=== PATIENT | female | born 1995 | race Caucasian/White ===

== ENCOUNTER 2017-06-06 21:35 | Outpatient (CLI) | payer OTHER ==
[2017-06-06 22:05] LABS: APPEARANCE,URINE CLOUDY; BILIRUBIN,URINE NEGATIVE (NEGATIVE); GLUCOSE, URINE NEGATIVE (NEGATIVE); KETONES,URINE NEGATIVE (NEGATIVE); LEUKOCYTE ESTERASE,URINE TRACE (NEGATIVE); NITRITE,URINE NEGATIVE (NEGATIVE); PROTEIN,URINE NEGATIVE (NEGATIVE); URINE SPECIFIC GRAVITY 1.006; UROBILINOGEN,URINE NEGATIVE mg/dL (<2.0)
[2017-06-06 22:10] LABS: AMNISURE (ROM) NEGATIVE (NEGATIVE)
[2017-06-06 22:21] LABS: URINE BARBITURATES SCREEN NEGATIVE; URINE METHADONE SCREEN NEGATIVE; URINE OPIATES LOW NEGATIVE; URINE PHENCYCLIDINE SCREEN NEGATIVE
--- NOTE | 2017-06-06 22:31 | Non Stress Test Report ---
Non Stress Test Datetime Report Generated by CPN: 06/06/2017 22:31 DEMOGRAPHIC EGA NST: 34.5 INDICATION Indication for Study: Ordered by Provider MONITORING Monitor Explained: Monitor Explained; Test Explained; Patient Verbalized Understanding Time on Monitor: 06/06/2017 21:54 Time off Monitor: 06/06/2017 22:25 NST Duration: 31 NST INTERVENTIONS NST Interventions: PO Hydration; Reposition Patient Physician Notified NST: H. Umer CNM BABY A: [id number] BABY A Movement : Present Contraction Frequency : none FHR Baseline : 150 Accelerations : 15X15 Decelerations : None Variability : Moderate 6-25bpm NST Review: Meets Criteria for Reactive NST NST Review and Verified By : Easton Martins RN NST Results: Reactive NST REPORT Report Trigger: Send Report
== END 2017-06-06 22:42 | disposition home or self-care (01) ==
LOC: LC 21:35
PROVIDERS: ATTEND Obstetrics & Gynecology
PROC: 4A1HXCZ Monitoring of Products of Conception, Cardiac Rate, External Approach (ICD-10-PCS; principal; 2017-06-06)
DX: O47.03 False labor before 37 completed weeks of gestation, third trimester (principal); Z3A.34 34 weeks gestation of pregnancy
CPT/HCPCS: 59025; 80307; 81001; 84112

== ENCOUNTER 2017-06-16 23:21 | Outpatient (CLI) | payer OTHER ==
[2017-06-16 23:58] LABS: APPEARANCE,URINE CLOUDY; BILIRUBIN,URINE NEGATIVE (NEGATIVE); GLUCOSE, URINE NEGATIVE (NEGATIVE); KETONES,URINE 80 mg/dL (NEGATIVE); LEUKOCYTE ESTERASE,URINE TRACE (NEGATIVE); NITRITE,URINE NEGATIVE (NEGATIVE); PROTEIN,URINE NEGATIVE (NEGATIVE); URINE SPECIFIC GRAVITY 1.019; UROBILINOGEN,URINE NEGATIVE mg/dL (<2.0)
[2017-06-17] MEDS ORDERED: BUTALB/ACETAMINOPHEN/CAFFEINE 1 TAB EACH PO ONE (00:05)
[2017-06-17] MEDS ORDERED: ONDANSETRON 4 MG TAB.RAPDIS PO ONE (00:05)
[2017-06-17] MEDS ORDERED: ONDANSETRON 4 MG TAB.RAPDIS ONE (00:07)
[2017-06-17] MEDS ORDERED: BUTALB/ACETAMINOPHEN/CAFFEINE 1 TAB EACH ONE (00:07)
[2017-06-17 00:10] LABS: URINE BARBITURATES SCREEN NEGATIVE; URINE METHADONE SCREEN NEGATIVE; URINE OPIATES LOW NEGATIVE; URINE PHENCYCLIDINE SCREEN NEGATIVE
== END 2017-06-17 01:31 | disposition home or self-care (01) ==
LOC: LC 23:21
PROVIDERS: ATTEND Obstetrics & Gynecology
PROC: 4A1HXCZ Monitoring of Products of Conception, Cardiac Rate, External Approach (ICD-10-PCS; principal; 2017-06-16)
DX: O47.03 False labor before 37 completed weeks of gestation, third trimester (principal); Z3A.36 36 weeks gestation of pregnancy
CPT/HCPCS: 59025; 81001; 80307; J3490; S0119

== ENCOUNTER 2017-06-21 13:58 | Outpatient (CLI) | payer OTHER ==
--- NOTE | 2017-06-21 14:01 | Non Stress Test Report ---
Non Stress Test Datetime Report Generated by CPN: 06/21/2017 14:01 DEMOGRAPHIC Test Number: 2 EGA NST: 36.1 INDICATION Indication for Study: Ordered by Provider VITAL SIGNS Temperature - NST: 98.8 URINE RESULTS Urine Protein, NST: Negative Urine Ketones - NST: Positive Urine Glucose - NST: Negative Urine Blood - NST: Negative MONITORING Monitor Explained: Monitor Explained; Test Explained; Patient Verbalized Understanding; Other Time on Monitor: 06/16/2017 23:42 Time off Monitor: 06/17/2017 01:23 NST Duration: 101 NST INTERVENTIONS NST Interventions: PO Hydration Physician Notified NST: Dr. Tellez BABY A: [id number] BABY A Movement : Present Contraction Frequency : irregular FHR Baseline : 130 Accelerations : 15X15 Decelerations : None Variability : Moderate 6-25bpm NST Review: Meets Criteria for Reactive NST NST Review and Verified By : sivakumar robert NST Results: Reactive NST REPORT Report Trigger: Send Report
[2017-06-21] MEDS ORDERED: MAG HYDROX/AL HYDROX/SIMETH SUSP 30 ML UDCUP ONE (14:12)
[2017-06-21] MEDS ORDERED: MAG HYDROX/AL HYDROX/SIMETH SUSP 30 ML UDCUP PO ONE (14:15)
[2017-06-21 14:53] LABS: APPEARANCE,URINE SLIGHTLY-CLOUDY; BILIRUBIN,URINE NEGATIVE (NEGATIVE); GLUCOSE, URINE NEGATIVE (NEGATIVE); KETONES,URINE NEGATIVE (NEGATIVE); LEUKOCYTE ESTERASE,URINE TRACE (NEGATIVE); NITRITE,URINE NEGATIVE (NEGATIVE); PROTEIN,URINE NEGATIVE (NEGATIVE); URINE SPECIFIC GRAVITY 1.006; UROBILINOGEN,URINE NEGATIVE mg/dL (<2.0)
[2017-06-21 14:59] LABS: AMNISURE (ROM) NEGATIVE (NEGATIVE)
[2017-06-21 15:22] LABS: URINE METHADONE SCREEN NEGATIVE; URINE OPIATES LOW NEGATIVE; URINE PHENCYCLIDINE SCREEN NEGATIVE
[2017-06-21 15:28] LABS: URINE BARBITURATES SCREEN UNCONFIRMED POSITIVE
--- NOTE | 2017-06-21 16:02 | Non Stress Test Report ---
Non Stress Test Datetime Report Generated by CPN: 06/21/2017 16:02 DEMOGRAPHIC EGA NST: 36.6 INDICATION Indication for Study: Polyhydramnios; Other Indication for Study (NST) Other: Cramping VITAL SIGNS Temperature - NST: 99.1 MONITORING Monitor Explained: Monitor Explained; Test Explained; Patient Verbalized Understanding Time on Monitor: 06/21/2017 14:46 Time off Monitor: 06/21/2017 15:51 NST Duration: 65 NST INTERVENTIONS NST Interventions: PO Hydration Physician Notified NST: J. Mckeon, CNM BABY A Movement : Present Contraction Frequency : Irritability FHR Baseline : 150 Accelerations : 15X15 Decelerations : None Variability : Moderate 6-25bpm NST Review: Meets Criteria for Reactive NST NST Review and Verified By : Kaycee Alvarado RN NST Results: Reactive NST REPORT Report Trigger: Send Report
== END 2017-06-21 16:00 | disposition home or self-care (01) ==
LOC: LC 13:58
PROVIDERS: ATTEND Obstetrics & Gynecology
PROC: 4A1HXCZ Monitoring of Products of Conception, Cardiac Rate, External Approach (ICD-10-PCS; principal; 2017-06-21)
DX: O40.3XX0 Polyhydramnios, third trimester, not applicable or unspecified (principal); Z3A.36 36 weeks gestation of pregnancy
CPT/HCPCS: 59025; 84112; 81005; 80307; 80345; G0480

== ENCOUNTER 2017-06-28 16:21 | Outpatient (CLI) | payer OTHER | END 2017-06-28 16:56 | disposition home or self-care (01) | LOC: LC 16:21 | PROVIDERS: ATTEND Obstetrics & Gynecology | PROC: 4A1HXCZ Monitoring of Products of Conception, Cardiac Rate, External Approach (ICD-10-PCS; principal; 2017-06-28) | DX: O40.3XX0 Polyhydramnios, third trimester, not applicable or unspecified (principal); Z3A.37 37 weeks gestation of pregnancy | CPT/HCPCS: 59025 ==

== ENCOUNTER 2017-08-01 07:18 | Emergency (ER) | payer OTHER ==
[2017-08-01] MEDS ORDERED: ONDANSETRON HCL INJ/PF 4 MG/2 ML SDV IV ONE (07:43)
[2017-08-01] MEDS ORDERED: NORMAL SALINE 1000 ML 1,000 ML IV ONE (07:43)
[2017-08-01] MEDS ORDERED: MORPHINE SULFATE 10 MG/ML INJ IV ONE ×2 (07:44→10:08)
--- NOTE | 2017-08-01 08:01 | ER Document Report ---
ED GI/ - General Chief Complaint: Epigastric Pain Stated Complaint: difficulty breathing Time Seen by Provider: 08/01/17 07:32 Mode of Arrival: Ambulatory Information source: Patient, Relative Notes: Patient is a 21-year-old white female comes to emergency room with the onset of nausea vomiting and diarrhea with abdominal discomfort and pain. Patient states that she drank a little bit last night she had 3 of [employer] hard lemonade little cans and ate a pizza. Patient states that she has difficulty with gluten and this morning when she woke up she started with vomiting and diarrhea. Shortly after she had some vomiting patient started with midepigastric pain and became short of breath. She has vomited multiple times and had multiple bouts of diarrhea. Patient is status post 21 days she delivered on July 11, 2017. She currently states that she is not breast- feeding. She denies any other surgical interventions in the abdomen and she did give vaginal . This is her first she is para 1 1 now. TRAVEL OUTSIDE OF THE [place] 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, Similar, Heavier, Severe, Bright red, Dark brown, Passing clots, Passing tissue LMP: 9 months ago : 1 Para: 1 Sexual history: Active Associated symptoms: Diarrhea, Shortness of breath, Vomiting Exacerbated by: Denies Relieved by: Denies Similar symptoms previously: No Recently seen / treated by doctor: No - Related Data Allergies/Adverse Reactions: hydrocodone Allergy (Mild, Verified 08/01/17 07:44) Hives latex Allergy (Verified 08/01/17 07:44) shellfish derived Allergy (Verified 08/01/17 07:44) hydroxyzine [From Vistaril] Adverse Reaction (Intermediate, Verified 08/01/17 07 :44) Penicillins Adverse Reaction (Mild, Verified 08/01/17 07:44) Past Medical History - General Information source: Patient, Relative Last Menstrual Period: 9 months ago - Social History Smoking Status: Current Every Day Smoker Chew tobacco use (# tins/day): No - Patient does not smoke cigarettes she vapes Smoking Education Provided: Yes Frequency of alcohol use: None Drug Abuse: None Lives with: Family Family History: Reviewed & Not Pertinent Patient has suicidal ideation: No Patient has homicidal ideation: No Renal/ Medical History: Denies: Hx Peritoneal Dialysis Review of Systems - Review of Systems Constitutional: Weakness EENT: No symptoms reported Cardiovascular: No symptoms reported Respiratory: No symptoms reported, Short of breath Gastrointestinal: Abdominal pain, Diarrhea, Nausea, Vomiting Genitourinary: No symptoms reported Female Genitourinary: No symptoms reported Musculoskeletal: No symptoms reported Skin: No symptoms reported Hematologic/Lymphatic: No symptoms reported Neurological/Psychological: No symptoms reported Physical Exam - Vital signs Vitals: Temp Pulse Resp BP Pulse Ox 98.3 F 91 20 138/83 H 100 08/01/17 07:21 08/01/17 07:21 08/01/17 07:21 08/01/17 07:21 08/01/17 07:21 Interpretation: Hypertensive - General General appearance: Other - Obvious pain and discomfort In distress: Moderate - HEENT Head: Normocephalic, Atraumatic Mouth/Lips: Normal Mucous membranes: Normal, Moist Pharynx: Normal Neck: Normal - Respiratory Respiratory status: No respiratory distress Chest status: Nontender. No: Tender, Chest mass, Ecchymosis, No pleuritic chest pain, Pain on movement, Pain with cough, Pain with deep breathing, Wounds , Accessory muscle use, Prolonged expirations, Splinting, Other Breath sounds: Normal. No: Decreased air movement, Nonproductive cough, Productive cough, Rales, Rhonchi, Stridor, Wheezing, Other Chest palpation: Normal - Cardiovascular Rhythm: Regular Heart sounds: Normal auscultation Murmur: No - Abdominal Inspection: Obese Distension: No distension Bowel sounds: Normal Tenderness: Tender, McBurney's point, Alvarado's sign, Guarding, Rebound, Other - Referred, heel strike, Organomegaly: No organomegaly - Back Back: Normal, Nontender - Neurological Neuro grossly intact: Yes Cognition: Normal Orientation: AAOx4 [place] Coma Scale Eye Opening: Spontaneous [place] Coma Scale Verbal: Oriented [place] Coma Scale Motor: Obeys Commands T[place]on Coma Scale Total: 15 Speech: Normal - Skin Skin Temperature: Warm Skin Moisture: Diaphoretic Skin Color: Normal, [place], Pale Course - Vital Signs Vital signs: Temp Pulse Resp BP Pulse Ox 98.3 F 91 20 138/83 H 100 08/01/17 07:21 08/01/17 07:21 08/01/17 07:21 08/01/17 07:21 08/01/17 07:21 - Laboratory Result Diagrams: 08/01/17 08:02 08/01/17 08:02 Laboratory results interpreted by me: 08/01/17 08/01/17 08/01/17 07:38 08:02 08:02 RDW 16.2 H Sodium 149.1 H AST 48 H ALT 65 H Lipase 754.7 H Urine Protein 30 H Urine Blood MODERATE H Ur Leukocyte Esterase LARGE H - Diagnostic Test Radiology reviewed: Reports reviewed - Ultrasound of the gallbladder showed gallstones otherwise normal right upper quadrant ultrasound Discharge - Discharge Disposition: [facility] Admitting Provider: Ameya
[2017-08-01 08:02] LABS: APPEARANCE,URINE CLOUDY; BILIRUBIN,URINE NEGATIVE (NEGATIVE); GLUCOSE, URINE NEGATIVE (NEGATIVE); KETONES,URINE NEGATIVE (NEGATIVE); LEUKOCYTE ESTERASE,URINE LARGE (NEGATIVE); NITRITE,URINE NEGATIVE (NEGATIVE); PROTEIN,URINE 30 mg/dL (NEGATIVE); URINE SPECIFIC GRAVITY 1.025; UROBILINOGEN,URINE NEGATIVE mg/dL (<2.0)
[2017-08-01 08:15] LABS: ABSOLUTE BASOPHILS # (AUTO) 0.1 10^3/uL (0.0-0.2); ABSOLUTE EOSINOPHILS # (AUTO) 0.1 10^3/uL (0.0-0.6); ABSOLUTE MONOCYTES (AUTO) 0.2 10^3/uL (0.1-1.4); ABSOLUTE NEUT (AUTO) 3.6 10^3/uL (1.7-8.2); EOSINOPHILS % (AUTO) 1.9 % (0-6); HEMOGLOBIN 13.8 g/dL (12.0-15.5); HGB HCT DIFFERENCE 0.4; LYMPHOCYTES % (AUTO) 33.3 % (13-45); MEAN CORPUSCULAR HEMOGLOBIN 28.1 pg (27.0-33.4); MEAN CORPUSCULAR HGB CONC 33.7 g/dL (32.0-36.0); MEAN CORPUSCULAR VOLUME 83 fl (80-97); MONOCYTES % (AUTO) 4.1 % (3-13); RED BLOOD COUNT 4.91 10^6/uL (3.72-5.28); RED CELL DISTRIBUTION WIDTH 16.2 % (11.5-14.0); SEGMENTED NEUTROPHILS % (AUTO) 59.7 % (42-78)
[2017-08-01 08:28] LABS: ALANINE AMINOTRANSFERASE 65 U/L (9-52); ALBUMIN 4.9 g/dL (3.5-5.0); ALKALINE PHOSPHATASE 96 U/L (38-126); ANION GAP 17 (5-19); ASPARTATE AMINO TRANSFERASE 48 U/L (14-36); BILIRUBIN,DIRECT 0.4 mg/dL (0.0-0.4); BILIRUBIN,TOTAL 0.7 mg/dL (0.2-1.3); BLOOD UREA NITROGEN 18 mg/dL (7-20); CALCIUM 9.9 mg/dL (8.4-10.2); CARBON DIOXIDE 26 mmol/L (22-30); CHLORIDE 106 mmol/L (98-107); CREATININE RESULT 1.13 mg/dL (0.52-1.25); GLUCOSE 102 mg/dL (75-110); LIPASE 754.7 U/L (23-300); POTASSIUM 4.1 mmol/L (3.6-5.0); SODIUM 149.1 mmol/L (137-145); TOTAL PROTEIN 7.8 g/dL (6.3-8.2)
[2017-08-01] MEDS ORDERED: PROMETHAZINE HCL INJ 25 MG/1 ML VIAL IV ONE (08:43)
--- NOTE | 2017-08-01 09:38 | RADIOLOGY REPORT (SQ) ---
EXAM DESCRIPTION: U/S ABDOMEN LIMITED W/O DOP COMPLETED DATE/TIME: 08/01/2017 9:31 am REASON FOR STUDY: ? Gallblladder COMPARISON: None. TECHNIQUE: Dynamic and static grayscale images acquired of the abdomen and recorded on PACS. Additio nal selected color Doppler and spectral images recorded. LIMITATIONS: None. FINDINGS: PANCREAS: No masses. Visualized pancreatic duct normal caliber. LIVER: No masses. Echotexture normal. LIVER VASCULATURE: Normal directional flow of the main portal vein and hepatic veins. GALLBLADDER: Echodensity along the dependent wall of gallbladder consistent with gallstones. No thic kening of gallbladder wall. No pericholecystic fluid collection. ULTRASOUND-DETECTED DIAZ'S SIGN: Negative. INTRAHEPATIC DUCTS AND COMMON DUCT: CBD and intrahepatic ducts normal caliber. No filling defects. INFERIOR VENA CAVA: Normal flow. AORTA: No aneurysm. RIGHT KIDNEY: Normal size. Normal echogenicity. No solid or suspicious masses. No hydronephrosis. No calcifications. PERITONEAL AND RIGHT PLEURAL SPACE: No ascites or effusions. OTHER: No other significant finding. IMPRESSION: GALLSTONES. OTHERWISE NORMAL RIGHT UPPER QUADRANT ULTRASOUND. TECHNICAL DOCUMENTATION: JOB ID: [id number] [employer]- All Rights Reserved
[2017-08-01] MEDS ORDERED: CEFTRIAXONE 1 GM/D5W RTU 1 GM/50 ML RTUPB IV ONE (11:38)
[2017-08-01] MEDS ORDERED: DIPHENHYDRAMINE HCL 50 MG/ML VIAL IV ONE (12:06)
[2017-08-01] MEDS ORDERED: DIPHENHYDRAMINE HCL 50 MG/ML VIAL ONE (12:06)
[2017-08-01 12:18] VITALS: BP 98/77
== END 2017-08-01 12:18 | disposition short-term general hospital (02) ==
LOC: ER 07:18
DX: K85.90 Acute pancreatitis without necrosis or infection, unspecified (principal); K80.80 Other cholelithiasis without obstruction; R10.13 Epigastric pain; R11.2 Nausea with vomiting, unspecified; R19.7 Diarrhea, unspecified
CPT/HCPCS: 96376; 99285; 96361; 96374; 96375; 36415; 87040; 83690; 85025; 81025; 80053; 81001; 76705; J1200; J2270; J2550; J2405; J7030; J0696

== ENCOUNTER 2017-11-09 09:35 | Emergency (ER) | payer OTHER ==
--- NOTE | 2017-11-09 09:56 | ER Document Report ---
ED Medical Screen (RME) - General Chief Complaint: Abdominal Cramping Stated Complaint: ABDOMINAL CRAMPING Time Seen by Provider: 11/09/17 09:52 Notes: Patient has had lower abdominal cramping for the past couple of weeks. 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 Think she is likely because she has had 6 positive home test. Her last menstrual cycle was October 05. Has not had any vaginal bleeding or spotting. Has had nausea and vomiting. No fevers. Patient has a history of depression with her last born child, born 4 months ago. TRAVEL OUTSIDE OF THE [place] IN LAST 30 DAYS: No - Related Data Allergies/Adverse Reactions: hydrocodone Allergy (Mild, Verified 11/09/17 09:37) Hives latex Allergy (Verified 11/09/17 09:37) shellfish derived Allergy (Verified 11/09/17 09:37) hydroxyzine [From Vistaril] Adverse Reaction (Intermediate, Verified 11/09/17 09 :37) Penicillins Adverse Reaction (Mild, Verified 11/09/17 09:37) Past Medical History - Social History Chew tobacco use (# tins/day): No Frequency of alcohol use: None Drug Abuse: None Renal/ Medical History: Denies: Hx Peritoneal Dialysis - Immunizations History of Influenza Vaccine for 06/2017 - 11/2017 Season: Refused Physical Exam - Vital signs Vitals: Temp Pulse Resp BP Pulse Ox 98.0 F 91 20 128/64 H 100 11/09/17 09:41 11/09/17 09:41 11/09/17 09:41 11/09/17 09:41 11/09/17 09:41 Course - Vital Signs Vital signs: Temp Pulse Resp BP Pulse Ox 98.0 F 91 20 128/64 H 100 11/09/17 09:41 11/09/17 09:41 11/09/17 09:41 11/09/17 09:41 11/09/17 09:41
[2017-11-09 10:28] LABS: ABSOLUTE BASOPHILS # (AUTO) 0.1 10^3/uL (0.0-0.2); ABSOLUTE EOSINOPHILS # (AUTO) 0.1 10^3/uL (0.0-0.6); ABSOLUTE LYMPHOCYTES (AUTO) 2.1 10^3/uL (0.5-4.7); ABSOLUTE MONOCYTES (AUTO) 0.5 10^3/uL (0.1-1.4); ABSOLUTE NEUT (AUTO) 6.1 10^3/uL (1.7-8.2); BASOPHILS % (AUTO) 0.7 % (0-2); EOSINOPHILS % (AUTO) 1.2 % (0-6); HEMATOCRIT 40.5 % (36.0-47.0); HEMOGLOBIN 13.4 g/dL (12.0-15.5); LYMPHOCYTES % (AUTO) 23.3 % (13-45); MEAN CORPUSCULAR HEMOGLOBIN 27.1 pg (27.0-33.4); MEAN CORPUSCULAR HGB CONC 33.1 g/dL (32.0-36.0); MEAN CORPUSCULAR VOLUME 82 fl (80-97); MONOCYTES % (AUTO) 5.7 % (3-13); PLATELET COUNT 349 10^3/uL (150-450); RED BLOOD COUNT 4.94 10^6/uL (3.72-5.28); RED CELL DISTRIBUTION WIDTH 15.9 % (11.5-14.0); SEGMENTED NEUTROPHILS % (AUTO) 69.1 % (42-78); TOTAL CELLS COUNTED % (AUTO) 100 %; WHITE BLOOD COUNT 8.8 10^3/uL (4.0-10.5)
[2017-11-09 10:47] LABS: ALANINE AMINOTRANSFERASE 60 U/L (9-52); ALBUMIN 4.6 g/dL (3.5-5.0); ALKALINE PHOSPHATASE 66 U/L (38-126); ANION GAP 13 (5-19); ASPARTATE AMINO TRANSFERASE 30 U/L (14-36); BILIRUBIN,DIRECT 0.1 mg/dL (0.0-0.4); BILIRUBIN,TOTAL 0.4 mg/dL (0.2-1.3); BLOOD UREA NITROGEN 17 mg/dL (7-20); CALCIUM 9.7 mg/dL (8.4-10.2); CARBON DIOXIDE 23 mmol/L (22-30); CHLORIDE 103 mmol/L (98-107); GLUCOSE 91 mg/dL (75-110); POTASSIUM 4.4 mmol/L (3.6-5.0); SODIUM 138.9 mmol/L (137-145); TOTAL PROTEIN 6.9 g/dL (6.3-8.2)
[2017-11-09 10:52] LABS: APPEARANCE,URINE SLIGHTLY-CLOUDY; BILIRUBIN,URINE NEGATIVE (NEGATIVE); COLOR,URINE YELLOW; GLUCOSE, URINE NEGATIVE (NEGATIVE); KETONES,URINE NEGATIVE (NEGATIVE); LEUKOCYTE ESTERASE,URINE NEGATIVE (NEGATIVE); NITRITE,URINE NEGATIVE (NEGATIVE); PROTEIN,URINE NEGATIVE (NEGATIVE); URINE SPECIFIC GRAVITY 1.018; UROBILINOGEN,URINE NEGATIVE mg/dL (<2.0)
--- NOTE | 2017-11-09 10:58 | ER Document Report ---
ED GI/ - General Chief Complaint: Abdominal Cramping Stated Complaint: ABDOMINAL CRAMPING Time Seen by Provider: 11/09/17 09:52 Notes: 22-year-old 071 at around 5 weeks by last menstrual period who presents today with a home test yesterday. Patient states she has had some lower abdominal cramping without dysuria or diarrhea starting today. Patient states 3 days ago she did feel dizzy had a syncopal episode while standing in line. She has not passed out since that time. She denies any vaginal bleeding. She currently denies any lightheadedness and states that the nausea has improved. TRAVEL OUTSIDE OF THE [place] IN LAST 30 DAYS: No - HPI Patient complains to provider of: Other - See above Onset: Other - See above Timing/Duration: Gradual Quality of pain: Other - See above Severity at maximum: Mild Severity in ED: Mild Pain Level: Denies Location: Other - See above Vaginal bleeding (Compared to normal period): None vitamins taken: Yes Sexual history: Active Associated symptoms: Other Exacerbated by: Denies Relieved by: Denies - Related Data Allergies/Adverse Reactions: hydrocodone Allergy (Mild, Verified 11/09/17 09:37) Hives latex Allergy (Verified 11/09/17 09:37) shellfish derived Allergy (Verified 11/09/17 09:37) hydroxyzine [From Vistaril] Adverse Reaction (Intermediate, Verified 11/09/17 09 :37) Penicillins Adverse Reaction (Mild, Verified 11/09/17 09:37) Past Medical History - General Information source: Patient - Social History Smoking Status: Current Every Day Smoker Cigarette use (# per day): No Chew tobacco use (# tins/day): No Smoking Education Provided: No Frequency of alcohol use: None Drug Abuse: None Family History: Reviewed & Not Pertinent Patient has suicidal ideation: No Patient has homicidal ideation: No Renal/ Medical History: Denies: Hx Peritoneal Dialysis Past Surgical History: Reports: Hx Cholecystectomy Review of Systems - Review of Systems Constitutional: denies: Fever EENT: denies: Eye discharge, Nose discharge Respiratory: denies: Short of breath Gastrointestinal: Vomiting Genitourinary: denies: Dysuria Musculoskeletal: denies: Leg swelling Skin: Other - no hives. denies: Rash Neurological/Psychological: Other - no slurred speech -: Yes All other systems reviewed and negative Physical Exam - Vital signs Vitals: Temp Pulse Resp BP Pulse Ox 98.0 F 91 20 128/64 H 100 11/09/17 09:40 11/09/17 09:40 11/09/17 09:40 11/09/17 09:40 11/09/17 09:40 Notes: Reviewed vital signs and nursing note as charted by RN. CONSTITUTIONAL: Alert and oriented and responds appropriately to questions. Well -appearing; well-nourished HEAD: Normocephalic; atraumatic EYES: Sclerae non-icteric ENT: Normal nose; no rhinorrhea; moist mucous membranes; pharynx without lesions noted NECK: Supple without meningismus; non-tender CARD: Regular rate and rhythm; no murmurs RESP: Normal chest excursion without splinting or tachypnea; breath sounds clear and equal bilaterally ABD/GI: Normal bowel sounds; non-distended; soft, non-tender BACK: The back appears normal and is non-tender to palpation EXT: Normal ROM in all joints; no edema SKIN: No acute lesions noted NEURO: Moves all extremities equally; Motor and sensory function intact PSYCH: The patient's mood and manner are appropriate. Grooming and personal hygiene are appropriate. Course - Re-evaluation Re-evalutation: 11/09/17 10:58 Given the history and physical examination we will order quantitative hCG, basic labs, obtain an EKG, transvaginal ultrasound, pelvic examination. We would like to evaluate for possible threatened , ectopic , or other intra-abdominal pathology. EKG shows a heart of 72, normal sinus rhythm, normal axis, no obvious ST elevation or depression, inverted T-wave in lead III. 11/09/17 11:25 Pelvic examination shows no external or internal lesions. No cervical motion tenderness. Cervix is closed, no adnexal tenderness or masses palpated. 11/09/17 12:10 Labs as recorded. Quantitative hCG 1500. Ultrasound as recorded. Patient's vital signs are stable. Patient refuses any IV access. Patient denies dizziness. On repeat examination the patient has no tenderness to the lower abdominal region. She states she does feel better. I have explained the importance of strict return precautions as well as follow-up in 3 days for repeat ultrasound and quantitative hCG. Patient and state they understand return precautions. - Vital Signs Vital signs: Temp Pulse Resp BP Pulse Ox 98.0 F 91 20 112/51 L 100 11/09/17 09:41 11/09/17 09:41 11/09/17 09:41 11/09/17 11:46 11/09/17 09:41 - Laboratory Result Diagrams: 11/09/17 10:02 11/09/17 10:02 Laboratory results interpreted by me: 11/09/17 11/09/17 10:02 10:02 RDW 15.9 H ALT 60 H Beta HCG, Quant 1531.00 H Discharge - Discharge Clinical Impression: Threatened in early Syncope Qualifiers: Syncope type: unspecified Qualified Code(s): R55 - Syncope and collapse Condition: Good Disposition: HOME, SELF-CARE Additional Instructions: Come back immediately with any back pain, return or increased pain, weakness or numbness, vaginal bleeding, nausea vomiting, chest pain, repeat episodes of passing out, fevers, or any other acute problems. Make sure that you follow-up in 3 days at your doctor's office or here in the emergency department for repeat quantitative hCG and ultrasound.
[2017-11-09] MEDS ORDERED: NORMAL SALINE 1000 ML 1,000 ML IV ONE (10:59)
[2017-11-09 11:46] LABS: BACTERIA (WET MOUNT) 3+ BACTERIA SEEN; T.VAGINALIS (WET MOUNT) NO TRICHOMONAS SEEN; WBCS (WET MOUNT) RARE WBCS SEEN; YEAST (WET MOUNT) NO YEAST SEEN
--- NOTE | 2017-11-09 11:54 | RADIOLOGY REPORT (SQ) ---
EXAM DESCRIPTION: U/S OB TRANSVAG W/DOPPLER COMPLETED DATE/TIME: 11/09/2017 11:43 am REASON FOR STUDY: Lower mid abdominal tenderness, preg LMP Sep COMPARISON: None. TECHNIQUE: Transvaginal static and realtime grayscale images acquired of the pelvis. Additional shai cted spectral and color Doppler images recorded. All images stored on PACs. BHC,531 LIMITATIONS: None. FINDINGS: UTERUS: No visualized intrauterine . RIGHT ADNEXA: Normal ovary with normal vascular flow. No adnexal free fluid. No adnexal masses. LEFT ADNEXA: Normal ovary with normal vascular flow. No adnexal free fluid. No adnexal masses. FREE FLUID: None. OTHER: No other significant finding. IMPRESSION: NO VISUALIZED INTRA- OR EXTRAUTERINE . bHCG LEVEL TOO LOW TO EXPECT VISUALIZATION OF . ECTOPIC CANNOT BE EXCLUDED. FOLLOW-UP ULTRASOUND AND SERIAL BHCG LEVELS STRONGLY RECOMMENDED TO ACCURATELY ASSESS STATU S. TECHNICAL DOCUMENTATION: JOB ID: [id number] [employer]- All Rights Reserved Reading location - IP/workstation name: [email or web address]
[2017-11-09 12:24] VITALS: BP 124/60
[2017-11-09 13:07] LABS: CHLAM PCR NOT DETECTED (NOT DETECT); GON PCR NOT DETECTED (NOT DETECT)
--- NOTE | 2017-11-09 18:01 | EKG REPORT ---
SEVERITY:- NORMAL ECG - SINUS RHYTHM : Confirmed by: Reed Obrien MD 09-Nov-2017 18:00:43
== END 2017-11-09 12:22 | disposition home or self-care (01) ==
LOC: ER 09:35
DX: O20.0 Threatened abortion (principal); O26.899 Other specified pregnancy related conditions, unspecified trimester; R55 Syncope and collapse; R10.30 Lower abdominal pain, unspecified; O99.330 Smoking (tobacco) complicating pregnancy, unspecified trimester; Z3A.00 Weeks of gestation of pregnancy not specified; Z88.5 Allergy status to narcotic agent; Z91.040 Latex allergy status; Z91.013 Allergy to seafood; Z90.49 Acquired absence of other specified parts of digestive tract
CPT/HCPCS: 36415; 76817; 80053; 81001; 81025; 84702; 85025; 87210; 87491; 87591; 93005; 93010; 93976; 99285

== ENCOUNTER 2018-01-02 23:13 | Emergency (ER) | payer OTHER ==
[2018-01-03] MEDS ORDERED: ACETAMINOPHEN 325 MG TABLET PO ONE
--- NOTE | 2018-01-03 00:01 | ER Document Report ---
ED Medical Screen (RME) - General Chief Complaint: Vag Bleeding, +preg <12wks Stated Complaint: CRAMPING Time Seen by Provider: 01/02/18 23:59 Mode of Arrival: Ambulatory Information source: Patient Notes: Patient presents stating that she had a positive test recently. Patient reports having pelvic cramping with vaginal spotting. Patient states that she does have some right lateral side pain that goes to the right flank area. Patient denies any urinary symptoms. I have greeted and performed a rapid initial assessment of this patient. A comprehensive ED assessment and evaluation of the patient, analysis of test results and completion of the medical decision making process will be conducted by additional ED providers. TRAVEL OUTSIDE OF THE [place] IN LAST 30 DAYS: No - Related Data Allergies/Adverse Reactions: hydrocodone Allergy (Mild, Verified 11/09/17 09:37) Hives latex Allergy (Verified 11/09/17 09:37) shellfish derived Allergy (Verified 11/09/17 09:37) hydroxyzine [From Vistaril] Adverse Reaction (Intermediate, Verified 11/09/17 09 :37) Penicillins Adverse Reaction (Mild, Verified 11/09/17 09:37) Past Medical History Renal/ Medical History: Denies: Hx Peritoneal Dialysis Past Surgical History: Reports: Hx Cholecystectomy - Immunizations History of Influenza Vaccine for 06/2017 - 11/2017 Season: Refused Physical Exam - Vital signs Vitals: Temp Pulse Resp BP Pulse Ox 99 F 78 18 119/66 100 01/02/18 23:35 01/02/18 23:35 01/02/18 23:35 01/02/18 23:35 01/02/18 23:35 - Abdominal Tenderness: Tender - Lower pelvic, right lateral side Course - Vital Signs Vital signs: Temp Pulse Resp BP Pulse Ox 99 F 78 18 119/66 100 01/02/18 23:35 01/02/18 23:35 01/02/18 23:35 01/02/18 23:35 01/02/18 23:35
[2018-01-03 00:53] LABS: APPEARANCE,URINE SLIGHTLY-CLOUDY; BILIRUBIN,URINE NEGATIVE (NEGATIVE); COLOR,URINE YELLOW; GLUCOSE, URINE NEGATIVE (NEGATIVE); KETONES,URINE NEGATIVE (NEGATIVE); LEUKOCYTE ESTERASE,URINE NEGATIVE (NEGATIVE); NITRITE,URINE NEGATIVE (NEGATIVE); PROTEIN,URINE NEGATIVE (NEGATIVE); UROBILINOGEN,URINE NEGATIVE mg/dL (<2.0)
--- NOTE | 2018-01-03 02:06 | ER Document Report ---
ED GI/ - General Chief Complaint: Vag Bleeding, +preg <12wks Stated Complaint: CRAMPING Time Seen by Provider: 01/02/18 23:59 Mode of Arrival: Ambulatory Notes: The patient is a 22-year-old female, , presents with lower abdominal crampiness with vaginal bleeding. She took a home test that was positive. She denies current abdominal pain, nausea, vomiting, syncope, lightheadedness, urinary symptoms or headache. Her blood type is A positive. TRAVEL OUTSIDE OF THE [place] IN LAST 30 DAYS: No - Related Data Allergies/Adverse Reactions: hydrocodone Allergy (Mild, Verified 11/09/17 09:37) Hives latex Allergy (Verified 11/09/17 09:37) shellfish derived Allergy (Verified 11/09/17 09:37) hydroxyzine [From Vistaril] Adverse Reaction (Intermediate, Verified 11/09/17 09 :37) Penicillins Adverse Reaction (Mild, Verified 11/09/17 09:37) Past Medical History - General Information source: Patient - Social History Smoking Status: Unknown if Ever Smoked Family History: Reviewed & Not Pertinent Renal/ Medical History: Denies: Hx Peritoneal Dialysis Past Surgical History: Reports: Hx Cholecystectomy Review of Systems - Review of Systems Notes: REVIEW OF SYSTEMS: CONSTITUTIONAL: -fevers, -chills EENT: -eye pain, -difficulty swallowing, -nasal congestion CARDIOVASCULAR: -chest pain, -syncope. RESPIRATORY: -cough, -SOB GASTROINTESTINAL: +lower abdominal cramping, -nausea, -vomiting, -diarrhea GENITOURINARY: -dysuria, -hematuria, +vaginal bleeding MUSCULOSKELETAL: -back pain, -neck pain SKIN: -rash or skin lesions. HEMATOLOGIC: -easy bruising or bleeding. LYMPHATIC: -swollen, enlarged glands. NEUROLOGICAL: -altered mental status or loss of consciousness, -headache, - neurologic symptoms PSYCHIATRIC: -anxiety, -depression. ALL OTHER SYSTEMS REVIEWED AND NEGATIVE. Physical Exam - Vital signs Vitals: Temp Pulse Resp BP Pulse Ox 99 F 78 18 119/66 100 01/02/18 23:35 01/02/18 23:35 01/02/18 23:35 01/02/18 23:35 01/02/18 23:35 - Notes Notes: PHYSICAL EXAMINATION: GENERAL: Well-appearing, well-nourished and in no acute distress. HEAD: Atraumatic, normocephalic. EYES: Pupils equal round and reactive to light, extraocular movements intact, sclera anicteric, conjunctiva are normal. ENT: nares patent, oropharynx clear without exudates. Moist mucous membranes. NECK: Normal range of motion, supple without lymphadenopathy LUNGS: Breath sounds clear to auscultation bilaterally and equal. No wheezes rales or rhonchi. HEART: Regular rate and rhythm without murmurs ABDOMEN: Soft, nontender, normoactive bowel sounds. No guarding, no rebound. No masses appreciated. EXTREMITIES: Normal range of motion, no pitting or edema. No cyanosis. NEUROLOGICAL: Cranial nerves grossly intact. Normal speech, normal gait. Normal sensory and motor exams. PSYCH: Normal mood, normal affect. SKIN: Warm, Dry, normal turgor, no rashes or lesions noted. Course - Re-evaluation Re-evalutation: Patient is hemodynamically stable at this time and has absolutely no abdominal tenderness or pain to suggest an ectopic . Her beta quant is 33 and unsure if she is having a miscarriage or this is a very early . She will call her OB in the morning to schedule an appointment in 48-72 hours for a recheck. Given very strict return precautions, especially about ectopic , and she understands. - Vital Signs Vital signs: Temp Pulse Resp BP Pulse Ox 99 F 78 18 119/66 100 01/02/18 23:35 01/02/18 23:35 01/02/18 23:35 01/02/18 23:35 01/02/18 23:35 - Laboratory Laboratory results interpreted by me: 01/03/18 01/03/18 00:38 00:38 Beta HCG, Quant 33.46 H Urine Blood SMALL H - Diagnostic Test Radiology reviewed: Image reviewed, Reports reviewed Radiology results interpreted by me: OB US: No intrauterine identified. Moderate free pelvic fluid. Differential diagnosis includes gestational loss, early viable occult gestation , and occult ectopic gestation. Discharge - Discharge Clinical Impression: Vaginal bleeding before 22 weeks gestation Condition: Stable Disposition: HOME, SELF-CARE Additional Instructions: Your beta-HCG is 33 today. You should follow-up with the OB in 48-72 hours for recheck of your beta hCG to see if this is a viable or if you are having a miscarriage. Return immediately to the ER if you have abdominal pain, feel like you are about to pass out or you have any other concerns. : You are . care is best started as early in as possible. If you're unsure about continuing this , you should discuss this with your physician or with machine clothing worker at [facility]. You should take only medications approved by your physician. Acetaminophen can safely be taken for minor pains. As a rule, medication for chronic conditions such as asthma or seizures can safely be continued. You should discuss with the physician every medicine you take. Any regular exercise program can be continued. Talk to your physician, however, before engaging in competitive or demanding sports. Alcohol, smoking, and "street drugs" are dangerous to your baby. Cocaine is especially dangerous. Don't use any illicit drugs! BLEEDING DURING EARLY : You have been evaluated for passing blood while . While we take this symptom very seriously, most women with your degree of bleeding will go on to have a perfectly normal baby. A more serious cause of bleeding is tubal (or ectopic) . An ultrasound usually can show whether the is in the uterus or in the tube. Sometimes in early , no fetus is seen. In this case, careful follow-up, including repeat blood tests and repeat ultrasound, is necessary. Do not douche or have sex for at least a week, or until OK'd by the doctor. Don't use tampons. Call the doctor or return for re-examination if there is an increase in bleeding or cramping, extreme weakness, fainting, new abdominal pain, fever, or passage of tissue. REPEAT BLOOD TEST: At this time, it is uncertain if you have a viable . During the first three months of , the hormone produced from the placenta will steadily rise, usually doubling in value every 2 - 3 days. In order to determine if your is viable and likely be succesful, a repeat of this blood test for the hormone is recommended in 2 - 3 days. An order for this test to be done as an outpatient is being provided. After you have this repeat test done, call your doctor or call us for the results. If the value of the test is increasing as would be expected in a normal , then your is likely to be ok. However, if the value of the test is declining, it will suggest something has happened with your and it will not likely be a successful . FOLLOW-UP CARE: If you have been referred to a physician for follow-up care, call the physician s office for an appointment as you were instructed or within the next two days. If you experience worsening or a significant change in your symptoms (very heavy bleeding with large clots of blood, passage of tissue, more severe abdominal / pelvic pain or cramping, feeling faint or severe weakness, fever, etc.), notify the physician immediately or return to the Emergency Department at any time for re-evaluation. OBSTETRIC-GYNECOLOGIC (OB-[facility]) PHYSICIANS IN [place]: The [facility] [[email or web address] Clinic [address], [place] [phone] [facility] [address], [place] [phone] For active duty and dependents diagnosed with a threatened or miscarriage, you should follow up in the following manner: Standard patients who have a local civilian provider should follow up with that provider. Patients of the Family Practice Clinic should call your Team Nurse at 8: 00 am the following morning for further instructions. If you are neither a Standard patient nor a patient of the Family Practice Clinic, you should follow up at the [facility] ([facility]) . Patients already enrolled in the [facility] OB [facility], Prime patients not assigned to the Family Practice Clinic, and Active Duty patients not assigned to [facility] should report to the [facility] Lab at 8:00 am the next morning that the [facility] is open and then you will be seen in the OB Clinic at 11:00 am. Referrals: MOMO MACARIO MD [ACTIVE STAFF] - Follow up as needed
--- NOTE | 2018-01-03 03:08 | RADIOLOGY REPORT (SQ) ---
EXAM DESCRIPTION: U/S OB TRANSVAGINAL W/O DOP CLINICAL HISTORY: 22 years, Female, vaginal bleeding, COMPARISON: November 09, 2017 TECHNIQUE: Transvaginal LIMITATIONS: None. FINDINGS: 6 cm uterus, 2.1 cm thick endometrial stripe, no intrauterine , 2.0 cm cervical length, 3.1 cm right ovary, 3.5 cm left ovary, moderate anechoic free fluid in the posterior cul-de-sac and right ovarian fossa, and 1.7 cm possible left ovarian corpus luteum/dominant cyst. IMPRESSION: No intrauterine identified. Moderate free pelvic fluid. Differential diagnosis includes gestational loss, early viable occult gestation, and occult ectopic gestation.
[2018-01-03 03:56] VITALS: BP 112/82
== END 2018-01-03 03:55 | disposition home or self-care (01) ==
LOC: ER 23:13
DX: O46.91 Antepartum hemorrhage, unspecified, first trimester (principal); O26.891 Other specified pregnancy related conditions, first trimester; R10.30 Lower abdominal pain, unspecified; Z3A.00 Weeks of gestation of pregnancy not specified
CPT/HCPCS: 36415; 76817; 81001; 84702; 99284

== ENCOUNTER 2018-04-10 18:17 | Emergency (ER) | payer OTHER ==
--- NOTE | 2018-04-10 18:31 | ER Document Report ---
ED Medical Screen (RME) - General Chief Complaint: Abdominal Cramping Stated Complaint: VOMITING/HEADACHE Time Seen by Provider: 04/10/18 18:27 Mode of Arrival: Ambulatory Information source: Patient TRAVEL OUTSIDE OF THE [place].S. IN LAST 30 DAYS: No - HPI Patient complains to provider of: low abd pain, mssed periods, MCGRATH, N, V Onset: Other - pt. states she has pos. HPT recently and has had N,V, MCGRATH and low abd cramps for the past several days - Related Data Allergies/Adverse Reactions: hydrocodone Allergy (Mild, Verified 04/10/18 18:18) Hives latex Allergy (Verified 04/10/18 18:18) shellfish derived Allergy (Verified 04/10/18 18:18) hydroxyzine [From Vistaril] Adverse Reaction (Intermediate, Verified 04/10/18 18 :18) Penicillins Adverse Reaction (Mild, Verified 04/10/18 18:18) Past Medical History - Social History Frequency of alcohol use: None Drug Abuse: None Renal/ Medical History: Denies: Hx Peritoneal Dialysis Past Surgical History: Reports: Hx Cholecystectomy, Hx Orthopedic Surgery - right knee - Immunizations History of Influenza Vaccine for 06/2017 - 11/2017 Season: Refused Physical Exam - Vital signs Vitals: Temp Pulse Resp BP Pulse Ox 99.3 F 88 16 117/77 98 04/10/18 18:22 04/10/18 18:22 04/10/18 18:22 04/10/18 18:22 04/10/18 18:22 Course - Vital Signs Vital signs: Temp Pulse Resp BP Pulse Ox 99.3 F 88 16 117/77 98 04/10/18 18:22 04/10/18 18:22 04/10/18 18:22 04/10/18 18:22 04/10/18 18:22
[2018-04-10 19:07] LABS: ABSOLUTE BASOPHILS # (AUTO) 0.1 10^3/uL (0.0-0.2); ABSOLUTE EOSINOPHILS # (AUTO) 0.1 10^3/uL (0.0-0.6); ABSOLUTE MONOCYTES (AUTO) 0.5 10^3/uL (0.1-1.4); ABSOLUTE NEUT (AUTO) 5.8 10^3/uL (1.7-8.2); BASOPHILS % (AUTO) 0.7 % (0-2); EOSINOPHILS % (AUTO) 0.7 % (0-6); HEMATOCRIT 43.3 % (36.0-47.0); HEMOGLOBIN 14.6 g/dL (12.0-15.5); LYMPHOCYTES % (AUTO) 23.5 % (13-45); MEAN CORPUSCULAR HEMOGLOBIN 29.8 pg (27.0-33.4); MEAN CORPUSCULAR HGB CONC 33.8 g/dL (32.0-36.0); MEAN CORPUSCULAR VOLUME 88 fl (80-97); MONOCYTES % (AUTO) 5.5 % (3-13); PLATELET COUNT 246 10^3/uL (150-450); RED CELL DISTRIBUTION WIDTH 14.1 % (11.5-14.0); SEGMENTED NEUTROPHILS % (AUTO) 69.6 % (42-78); TOTAL CELLS COUNTED % (AUTO) 100 %; WHITE BLOOD COUNT 8.4 10^3/uL (4.0-10.5)
[2018-04-10 19:31] LABS: ALANINE AMINOTRANSFERASE 66 U/L (9-52); ALBUMIN 4.5 g/dL (3.5-5.0); ALKALINE PHOSPHATASE 50 U/L (38-126); ANION GAP 13 (5-19); ASPARTATE AMINO TRANSFERASE 42 U/L (14-36); BILIRUBIN,DIRECT 0.3 mg/dL (0.0-0.4); BILIRUBIN,TOTAL 0.7 mg/dL (0.2-1.3); BLOOD UREA NITROGEN 11 mg/dL (7-20); CALCIUM 9.4 mg/dL (8.4-10.2); CARBON DIOXIDE 26 mmol/L (22-30); CHLORIDE 104 mmol/L (98-107); GLUCOSE 103 mg/dL (75-110); POTASSIUM 3.8 mmol/L (3.6-5.0); SODIUM 143.2 mmol/L (137-145); TOTAL PROTEIN 7.4 g/dL (6.3-8.2)
[2018-04-10 19:47] LABS: APPEARANCE,URINE SLIGHTLY-CLOUDY; BILIRUBIN,URINE NEGATIVE (NEGATIVE); COLOR,URINE YELLOW; GLUCOSE, URINE NEGATIVE (NEGATIVE); KETONES,URINE NEGATIVE (NEGATIVE); LEUKOCYTE ESTERASE,URINE NEGATIVE (NEGATIVE); NITRITE,URINE NEGATIVE (NEGATIVE); PROTEIN,URINE 30 mg/dL (NEGATIVE); URINE SPECIFIC GRAVITY 1.031; UROBILINOGEN,URINE NEGATIVE mg/dL (<2.0)
[2018-04-10] MEDS ORDERED: METOCLOPRAMIDE HCL INJ/PF 10 MG/2 ML SDV IV ONE (20:23)
[2018-04-10] MEDS ORDERED: NORMAL SALINE 1000 ML 1,000 ML IV ONE (20:23)
[2018-04-10] MEDS ORDERED: METOCLOPRAMIDE HCL 10 MG TABLET PO ONE (21:08)
--- NOTE | 2018-04-10 21:11 | ER Document Report ---
ED General - General Mode of Arrival: Ambulatory Information source: Patient TRAVEL OUTSIDE OF THE [place] IN LAST 30 DAYS: No <CATARINA VERAS - Last Filed: 04/10/18 21:27> <SKIP JULIO - Last Filed: 04/10/18 23:48> - General Chief Complaint: Abdominal Cramping Stated Complaint: VOMITING/HEADACHE Time Seen by Provider: 04/10/18 18:27 Notes: 22 y.o female presents to the ED with lower abd cramping, MCGRATH, nausea and vomiting for the past several days. Pt reports that she has not been feeling well for the past month and also complains of exhaustion and not being able to sleep well. Pt states that she has taken 3 at home tests which all read to be positive. She denies any vaginal bleeding but admits to some dysuria and reports that she has had UTIs in the past. 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 Pt reports a PSHx of a knee surgery and cholecystectomy in August 12, 2017. Pt denies any loose stool since her cholecystectomy. ( CATARINA VERAS) - Related Data Allergies/Adverse Reactions: hydrocodone Allergy (Mild, Verified 04/10/18 18:18) Hives latex Allergy (Verified 04/10/18 18:18) shellfish derived Allergy (Verified 04/10/18 18:18) hydroxyzine [From Vistaril] Adverse Reaction (Intermediate, Verified 04/10/18 18 :18) Penicillins Adverse Reaction (Mild, Verified 04/10/18 18:18) Past Medical History - General Information source: Patient - Social History Smoking Status: Current Every Day Smoker - "vapes without nicotine" Frequency of alcohol use: None Drug Abuse: None Family History: Reviewed & Not Pertinent Patient has suicidal ideation: No Patient has homicidal ideation: No Renal/ Medical History: Denies: Hx Peritoneal Dialysis Past Surgical History: Reports: Hx Cholecystectomy, Hx Orthopedic Surgery - right knee <CATARINA VERAS - Last Filed: 04/10/18 21:27> Review of Systems - Review of Systems Constitutional: See HPI, Other - exhaustion and not sleeping well EENT: No symptoms reported Cardiovascular: No symptoms reported Respiratory: No symptoms reported Gastrointestinal: See HPI, Abdominal pain, Nausea, Vomiting. denies: Diarrhea Genitourinary: See HPI, Dysuria Female Genitourinary: See HPI, Musculoskeletal: No symptoms reported Skin: No symptoms reported Hematologic/Lymphatic: No symptoms reported Neurological/Psychological: Headaches -: Yes All other systems reviewed and negative <CATARINA VERAS - Last Filed: 04/10/18 21:27> Physical Exam - Vital signs Interpretation: Normal - General General appearance: Appears well, Alert - HEENT Head: Normocephalic, Atraumatic Eyes: Normal Pupils: PERRL - Respiratory Respiratory status: No respiratory distress Chest status: Nontender Breath sounds: Normal Chest palpation: Normal - Cardiovascular Rhythm: Regular Heart sounds: Normal auscultation Murmur: No - Abdominal Inspection: Normal Distension: No distension Bowel sounds: Normal Tenderness: Nontender Organomegaly: No organomegaly - Back Back: Normal, Nontender - Extremities General upper extremity: Normal inspection, Nontender, Normal color, Normal ROM , Normal temperature General lower extremity: Normal inspection, Nontender, Normal color, Normal ROM , Normal temperature, Normal weight bearing. No: Jenae's sign - Neurological Neuro grossly intact: Yes Cognition: Normal Orientation: AAOx4 [place] Coma Scale Eye Opening: Spontaneous [place] Coma Scale Verbal: Oriented [place] Coma Scale Motor: Obeys Commands [place] Coma Scale Total: 15 Speech: Normal Motor strength normal: LUE, RUE, LLE, RLE Sensory: Normal - Psychological Associated symptoms: Normal affect, Normal mood - Skin Skin Temperature: Warm Skin Moisture: Dry Skin Color: Normal <SKIP JULIO - Last Filed: 04/10/18 23:48> - Vital signs Vitals: Temp Pulse Resp BP Pulse Ox 99.3 F 88 16 117/77 98 04/10/18 18:22 04/10/18 18:22 04/10/18 18:22 04/10/18 18:22 04/10/18 18:22 Course - Laboratory Result Diagrams: 04/10/18 18:54 04/10/18 18:54 <CATARINA VERAS - Last Filed: 04/10/18 21:27> - Laboratory Result Diagrams: 04/10/18 18:54 04/10/18 18:54 <SKIP JULIO - Last Filed: 04/10/18 23:48> - Re-evaluation Re-evalutation: 04/10/18 Patient is a 22-year-old female who comes in complaining of lower abdominal cramping, nausea and occasional headache. Patient has an ultrasound showing that she is 6 weeks with a gestational sac. Blood work within normal limits. No bleeding. Rh+ blood type. Patient did not want to do IV fluids. She will be given Reglan for nausea and can take that at home for headache. She is to avoid ibuprofen and stop taping. Patient is to follow-up with her [facility] which is going to be in [place]. Understands and agrees with plan. return if any worsening or concerning symptoms. (SKIP JULIO) - Vital Signs Vital signs: Temp Pulse Resp BP Pulse Ox 97.9 F 61 16 100/61 98 04/10/18 21:34 04/10/18 21:34 04/10/18 21:34 04/10/18 21:34 04/10/18 18:22 - Laboratory Laboratory results interpreted by me: 04/10/18 04/10/18 04/10/18 18:54 18:54 18:54 RDW 14.1 H AST 42 H ALT 66 H Beta HCG, Quant 83992.00 H Urine Protein 30 H Urine HCG, Qual POSITIVE H Discharge <CATARINA VERAS - Last Filed: 04/10/18 21:27> <SKIP JULIO - Last Filed: 04/10/18 23:48> - Discharge Clinical Impression: Bleeding in early , Nausea Condition: Stable Disposition: HOME, SELF-CARE Instructions: Bleeding During Early ([facility]), Nausea or Vomiting, Nonspecific ([facility]) Additional Instructions: Please follow-up with your [facility] as planned. Please take a copy of your blood work and ultrasound with you. Prescriptions: Metoclopramide HCl [Reglan 10 mg Tablet] 1 - 2 tab PO ASDIR PRN #25 tablet PRN Reason: Scribe Attestation: 04/10/18 23:48 I personally performed the services described in the documentation, reviewed and edited the documentation which was dictated to the scribe in my presence, and it accurately records my words and actions. (SKIP JULIO) Scribe Documentation - Scribe Written by Maribel:: Maribel Reddy 04/10/18 [id number] acting as scribe for :: Macy <CATARINA VERAS - Last Filed: 04/10/18 21:27>
--- NOTE | 2018-04-10 21:13 | RADIOLOGY REPORT (SQ) ---
EXAM DESCRIPTION: U/S OB TRANSVAG W/DOPPLER COMPLETED DATE/TIME: 04/10/2018 8:59 pm REASON FOR STUDY: pelvic pain COMPARISON: 11/09/2017 TECHNIQUE: Transvaginal static and realtime grayscale images acquired of the pelvis. Additional shai cted spectral and color Doppler images recorded. All images stored on PACs. [facility],008 CLINICAL DATES: LMP 02/28/2018. 5 weeks 6 days. LIMITATIONS: None. FINDINGS: FETUS: Living intrauterine . ULTRASOUND EGA: 6 weeks 3 days based upon gestational sac size. ULTRASOUND RICK: 11/26/2018 CRL: Not seen. Yolk sac is present. FHR: Not seen. Beats per minute. SUBCHORIONIC BLEED: Yes SIZE OF BLEED: Small UTERUS: No masses or anomalies. 8.8 x 5.3 x 7.3 cm. CERVICAL LENGTH: 2.4 cm. Closed. RIGHT ADNEXA: Ovary not seen. No adnexal free fluid. No adnexal masses. LEFT ADNEXA: Ovary not seen. No adnexal free fluid. No adnexal masses. FREE FLUID: None. OTHER: No other significant finding. IMPRESSION: There is a gestational sac that is consistent with a gestational 6 weeks 3 days. pole is not seen at this time. Follow-up as clinically indicated. Trimester of : First - 0 to 13 weeks. TECHNICAL DOCUMENTATION: JOB ID: [id number] [employer]- All Rights Reserved rev-01/24 Reading location - IP/workstation name: [email or web address]
[2018-04-10 21:36] VITALS: BP 100/61
== END 2018-04-10 21:36 | disposition home or self-care (01) ==
LOC: ER 18:17
DX: O20.8 Other hemorrhage in early pregnancy (principal); O21.9 Vomiting of pregnancy, unspecified; O26.891 Other specified pregnancy related conditions, first trimester; R10.30 Lower abdominal pain, unspecified; R30.0 Dysuria; R51 Headache; O26.811 Pregnancy related exhaustion and fatigue, first trimester; Z3A.01 Less than 8 weeks gestation of pregnancy; Z87.440 Personal history of urinary (tract) infections; Z87.59 Personal history of other complications of pregnancy, childbirth and the puerperium; Z88.5 Allergy status to narcotic agent; Z91.041 Radiographic dye allergy status; Z91.013 Allergy to seafood; Z90.49 Acquired absence of other specified parts of digestive tract
CPT/HCPCS: 36415; 76817; 80053; 81001; 81025; 84702; 85025; 86900; 86901; 93976; 99284

== ENCOUNTER 2018-07-16 20:36 | Emergency (ER) | payer OTHER ==
[2018-07-16] MEDS ORDERED: NORMAL SALINE 1000 ML 1,000 ML IV ONE (21:00)
--- NOTE | 2018-07-16 21:00 | ER Document Report ---
ED General - General Chief Complaint: OB Problem (<20wks) Stated Complaint: VAGINAL DISCHARGE Time Seen by Provider: 07/16/18 21:00 Notes: Patient is a 22-year-old female, G 11 P1, approximately 20 weeks gravid that presents to the emergency department for chief complaint of vaginal spotting, pelvic cramping and a gushing sensation. Patient reports that she was out at the house, at a department store, and felt a "gushing sensation", and thought she may have urinated herself, she went to the bathroom and noticed it is clear , she felt the symptoms again, later in the day, and then had pelvic cramping, so she called labor and delivery, and they recommended her come to the emergency department to be evaluated. She has not had symptoms like this in the past, she has been having nausea and vomiting, and lightheadedness, and some vaginal spotting over the last few days as well. Denies having any dysuria , hematuria or urinary frequency. She currently rates her pain as a 3 out of 10 describes as a cramping bilateral lower sensation, and her abdomen, that is constant. Past Medical History: History of gestational diabetes Past Surgical History: Cholecystectomy Social History: Denies current tobacco, alcohol or drug use Family History: Reviewed and noncontributory for presenting illness Allergies: Reviewed, see documented allergy list. REVIEW OF SYSTEMS: Other than noted above, the 12 point review of systems was reviewed with the patient and were negative, all pertinent findings are included in the HPI. PHYSICAL EXAMINATION: Vital signs reviewed, nursing noted reviewed. GENERAL: Well-appearing, well-nourished and in no acute distress. HEAD: Atraumatic, normocephalic. EYES: Eyes appear normal, extraocular movements intact, sclera anicteric, conjunctiva are normal. ENT: nares patent, oropharynx clear without exudates. Moist mucous membranes. NECK: Normal range of motion, supple without lymphadenopathy LUNGS: Breath sounds clear to auscultation bilaterally and equal. No wheezes rales or rhonchi. HEART: Heart rate tachycardic, regular rhythm ABDOMEN: Soft, gravid, mild lower tenderness with palpation, normoactive bowel sounds. No rebound, guarding, or rigidity. No masses appreciated. EXTREMITIES: Nontender, good range of motion, no pitting or edema. NEUROLOGICAL: No focal neurological deficits. Moves all extremities spontaneously Motor and sensory grossly intact on exam. PSYCH: Normal mood, normal affect. SKIN: Warm, Dry, normal turgor, no rashes or lesions noted on exposed skin TRAVEL OUTSIDE OF THE [place] IN LAST 30 DAYS: No - Related Data Allergies/Adverse Reactions: hydrocodone Allergy (Mild, Verified 04/10/18 18:18) Hives latex Allergy (Verified 04/10/18 18:18) shellfish derived Allergy (Verified 04/10/18 18:18) hydroxyzine [From Vistaril] Adverse Reaction (Intermediate, Verified 04/10/18 18 :18) Penicillins Adverse Reaction (Mild, Verified 04/10/18 18:18) Past Medical History - Social History Smoking Status: Never Smoker Family History: Reviewed & Not Pertinent Renal/ Medical History: Denies: Hx Peritoneal Dialysis Past Surgical History: Reports: Hx Cholecystectomy, Hx Orthopedic Surgery - right knee Physical Exam - Vital signs Vitals: Temp Pulse Resp BP Pulse Ox 98.2 F 120 H 18 128/65 H 97 07/16/18 20:48 07/16/18 20:48 07/16/18 20:48 07/16/18 20:48 07/16/18 20:48 Course - Re-evaluation Re-evalutation: Patient seen and examined vital signs reviewed. Laboratory data and imaging were ordered as appropriate for the patient's presenting symptoms and complaint, with consideration of any critical or life threatening conditions that may be associated with their obtained history and exam as noted above. Patient was treated with IV fluids and Tylenol Results were reviewed when available and demonstrated normal OB ultrasound, live single intrauterine , close cervical loss, amniotic sac appropriate in size, UA demonstrated small leukocyte esterase, and some white blood cells, and trace bacteria, possible urinary tract infection, the rest of her blood work was unremarkable The patient was re-evaluated and was improved and stable, I did discuss the patient's case with DIGITAL TRAFFIC COORDINATOR, with Dr. Aguero, who felt that the patient could be discharged, no further recommendations at this time, did not suspect premature rupture of membranes, given that the patient had a well-defined amniotic sac, on the ultrasound, will prescribe Macrobid for 5 days, and have her follow-up with DIGITAL TRAFFIC COORDINATOR. Evaluation was most consistent with urinary tract infection, bleeding in early Results were discussed with the patient at this point, after careful consideration I feel that that patient can be discharged from the emergency department, the patient was educated treatments and reasons to return to the emergency department based on their presumed diagnosis as noted above, they were advised to followup with a primary care physician in 2-3 days. Patient was agreeable to plan of care. *Note is created using voice recognition software and may contain spelling, syntax or grammatical errors. Laboratory 07/16/18 07/16/18 07/16/18 21:10 21:10 21:10 WBC 10.1 RBC 4.34 Hgb 14.1 Hct 39.1 MCV 90 MCH 32.5 MCHC 36.1 H RDW 14.0 Plt Count 203 Seg Neutrophils % 74.0 Lymphocytes % 20.9 Monocytes % 4.2 Eosinophils % 0.4 Basophils % 0.5 Absolute Neutrophils 7.5 Absolute Lymphocytes 2.1 Absolute Monocytes 0.4 Absolute Eosinophils 0.0 Absolute Basophils 0.0 Sodium 138.8 Potassium 3.7 Chloride 104 Carbon Dioxide 23 Anion Gap 12 BUN 8 Creatinine 0.70 Est GFR ( Amer) > 60 Est GFR (Non-Af Amer) > 60 Glucose 115 H Calcium 9.2 Total Bilirubin 0.5 Direct Bilirubin 0.1 Neonat Total Bilirubin Not Reportable Neonat Direct Bilirubin Not Reportable Neonat Indirect Bili Not Reportable AST 18 ALT 17 Alkaline Phosphatase 55 Total Protein 6.4 Albumin 3.6 Beta HCG, Quant 65764.00 H Total Beta HCG POSITIVE Urine Color YELLOW Urine Appearance CLOUDY Urine pH 6.0 Ur Specific [place] 1.025 Urine Protein 30 H Urine Glucose (UA) 50 H Urine Ketones NEGATIVE Urine Blood NEGATIVE Urine Nitrite NEGATIVE Urine Bilirubin NEGATIVE Urine Urobilinogen 2.0 H Ur Leukocyte Esterase SMALL H Urine WBC (Auto) 9 Urine RBC (Auto) 1 Urine Bacteria (Auto) TRACE Squamous Epi Cells Auto 18 Urine Mucus (Auto) MOD Urine Ascorbic Acid NEGATIVE - Vital Signs Vital signs: Temp Pulse Resp BP Pulse Ox 98.2 F 120 H 23 H 93/66 L 97 07/16/18 20:48 07/16/18 20:48 07/16/18 23:01 07/16/18 23:01 07/16/18 23:01 - Laboratory Result Diagrams: 07/16/18 21:10 07/16/18 21:10 Laboratory results interpreted by me: 07/16/18 07/16/18 07/16/18 21:10 21:10 21:10 MCHC 36.1 H Glucose 115 H Beta HCG, Quant 58620.00 H Urine Protein 30 H Urine Glucose (UA) 50 H Urine Urobilinogen 2.0 H Ur Leukocyte Esterase SMALL H - EKG Interpretation by Me Additional EKG results interpreted by me: EKG demonstrates ventricular rate of 89 bpm, normal axis, normal intervals, nonspecific T wave inversion in lead III, otherwise unremarkable, no ST changes. Discharge - Discharge Clinical Impression: Lightheadedness UTI (urinary tract infection) Qualifiers: Urinary tract infection type: site unspecified Hematuria presence: with hematuria Qualified Code(s): N39.0 - Urinary tract infection, site not specified Qualifiers: Weeks of gestation: 19 weeks Qualified Code(s): Z3A.19 - 19 weeks gestation of Condition: Stable Disposition: HOME, SELF-CARE Instructions: Bleeding During Early ([facility]), Urinary Tract Infection ( [facility]) Additional Instructions: Please follow-up with the DIGITAL TRAFFIC COORDINATOR, call for an appointment today, if you are having continued difficulty at home, and feel unsafe at home, and do not have the support at home, that 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 Please take antibiotic as prescribed for the next 5 days. Continue to try to stay hydrated, with sports drinks Prescriptions: Nitrofurantoin Macrocrystal [Macrodantin] 100 mg PO BID #10 capsule Referrals: [facility] [Provider Group] - Follow up tomorrow
[2018-07-16 21:34] LABS: ABSOLUTE LYMPHOCYTES (AUTO) 2.1 10^3/uL (0.5-4.7); ABSOLUTE MONOCYTES (AUTO) 0.4 10^3/uL (0.1-1.4); ABSOLUTE NEUT (AUTO) 7.5 10^3/uL (1.7-8.2); APPEARANCE,URINE CLOUDY; BASOPHILS % (AUTO) 0.5 % (0-2); BILIRUBIN,URINE NEGATIVE (NEGATIVE); COLOR,URINE YELLOW; EOSINOPHILS % (AUTO) 0.4 % (0-6); GLUCOSE, URINE 50 mg/dL (NEGATIVE); HEMATOCRIT 39.1 % (36.0-47.0); HEMOGLOBIN 14.1 g/dL (12.0-15.5); KETONES,URINE NEGATIVE (NEGATIVE); LEUKOCYTE ESTERASE,URINE SMALL (NEGATIVE); LYMPHOCYTES % (AUTO) 20.9 % (13-45); MEAN CORPUSCULAR HEMOGLOBIN 32.5 pg (27.0-33.4); MEAN CORPUSCULAR HGB CONC 36.1 g/dL (32.0-36.0); MEAN CORPUSCULAR VOLUME 90 fl (80-97); MONOCYTES % (AUTO) 4.2 % (3-13); NITRITE,URINE NEGATIVE (NEGATIVE); PLATELET COUNT 203 10^3/uL (150-450); PROTEIN,URINE 30 mg/dL (NEGATIVE); RED BLOOD COUNT 4.34 10^6/uL (3.72-5.28); TOTAL CELLS COUNTED % (AUTO) 100 %; URINE SPECIFIC GRAVITY 1.025; WHITE BLOOD COUNT 10.1 10^3/uL (4.0-10.5)
[2018-07-16 21:41] LABS: ALANINE AMINOTRANSFERASE 17 U/L (9-52); ALBUMIN 3.6 g/dL (3.5-5.0); ALKALINE PHOSPHATASE 55 U/L (38-126); ANION GAP 12 (5-19); ASPARTATE AMINO TRANSFERASE 18 U/L (14-36); BILIRUBIN,DIRECT 0.1 mg/dL (0.0-0.4); BILIRUBIN,TOTAL 0.5 mg/dL (0.2-1.3); BLOOD UREA NITROGEN 8 mg/dL (7-20); CALCIUM 9.2 mg/dL (8.4-10.2); CARBON DIOXIDE 23 mmol/L (22-30); CHLORIDE 104 mmol/L (98-107); GLUCOSE 115 mg/dL (75-110); POTASSIUM 3.7 mmol/L (3.6-5.0); SODIUM 138.8 mmol/L (137-145); TOTAL PROTEIN 6.4 g/dL (6.3-8.2)
--- NOTE | 2018-07-16 23:57 | RADIOLOGY REPORT (SQ) ---
EXAM DESCRIPTION: US LIMITED COMPLETED DATE/TME: 07/16/2018 00:00 CLINICAL HISTORY: 22 years, Female, abd pain Findings: Single IUP is noted with estimated gestational age of 19 weeks and five days. Cervix is closed and measures 4.2 cm. APRIL measures 4.5 cm. heart rate 144 bpm.
[2018-07-17 00:36] VITALS: BP 93/66
--- NOTE | 2018-07-17 07:37 | EKG REPORT ---
SEVERITY:- BORDERLINE ECG - SINUS RHYTHM NONSPECIFIC ST-T CHANGES INFERIOR LEADS : Confirmed by: Reed Obrien MD 17-Jul-2018 07:36:28
== END 2018-07-17 00:42 | disposition home or self-care (01) ==
LOC: ER 20:36
DX: O23.42 Unspecified infection of urinary tract in pregnancy, second trimester (principal); O26.852 Spotting complicating pregnancy, second trimester; O21.9 Vomiting of pregnancy, unspecified; O26.892 Other specified pregnancy related conditions, second trimester; R42 Dizziness and giddiness; R10.2 Pelvic and perineal pain; R00.0 Tachycardia, unspecified; Z3A.19 19 weeks gestation of pregnancy; Z88.0 Allergy status to penicillin; Z91.040 Latex allergy status; Z91.013 Allergy to seafood
CPT/HCPCS: 93005; 99284; 96360; 36415; 84702; 85025; 80053; 81001; 76805; 76815; 93010; J7030

== ENCOUNTER 2018-08-11 20:30 | Emergency (ER) | payer OTHER ==
--- NOTE | 2018-08-11 22:59 | ER Document Report ---
ED Syncope and Near Syncope - General Chief Complaint: Syncope Stated Complaint: FALL Time Seen by Provider: 08/11/18 21:31 Mode of Arrival: Wheelchair Information source: Patient Notes: Patient is a 22-year-old female at 23 weeks who presents with isolated syncopal episode. Patient reports she was walking in her living room when she felt lightheaded and dizzy, also felt palpitations then had loss of consciousness. The event was unwitnessed, however, the patient feels as though she was on the floor for "a few minutes." She was able to stand immediately afterwards but still felt lightheaded. She denies recent illness, injury, or medication changes. Currently she reports feeling to be her normal self. Of note, patient reports having similar episodes going back years; patient has had extensive workup in the past and is scheduled for both echocardiogram and radiation monitor placement later this week. TRAVEL OUTSIDE OF THE [place] IN LAST 30 DAYS: No - HPI Patient complains to provider of: Fainting Episode witnessed (by whom): No Single episoded occurred: Single When did episodes begin: "Years ago" When was most recent episode: Today Symptoms prior to episode: Dizziness, Lightheaded, Palpitations. No: Abdominal pain, Chest pain, Headache Duration of preceeding symptoms: "A few seconds" Position/Activity at time of episode: Standing Quality of pain: Achy Severity: Mild Pain Level: Denies Context: Collapsed, Lost consciousness, . denies: Confused after event , Incontinent of stool, Incontinent of urine Duration of LOC (min): "A few minutes" Injury location: None Current symptoms: None/feels back to normal Similar symptoms previously: Yes Recently seen / treated by doctor: No - Related Data Allergies/Adverse Reactions: hydrocodone Allergy (Mild, Verified 04/10/18 18:18) Hives latex Allergy (Verified 04/10/18 18:18) shellfish derived Allergy (Verified 04/10/18 18:18) hydroxyzine [From Vistaril] Adverse Reaction (Intermediate, Verified 04/10/18 18 :18) Penicillins Adverse Reaction (Mild, Verified 04/10/18 18:18) Past Medical History - General Information source: Patient - Social History Smoking Status: Current Some Day Smoker Chew tobacco use (# tins/day): No Smoking Education Provided: No Frequency of alcohol use: None Drug Abuse: None Lives with: Family Family History: Reviewed & Not Pertinent Patient has suicidal ideation: No Patient has homicidal ideation: No - Medical History Medical History: Other - Syncope - Past Medical History Cardiac Medical History: Reports: None Pulmonary Medical History: Reports: None EENT Medical History: Reports: None Neurological Medical History: Reports: None Endocrine Medical History: Reports: None Renal/ Medical History: Reports: None. Denies: Hx Peritoneal Dialysis Malignancy Medical History: Reports: None GI Medical History: Reports: None Musculoskeletal Medical History: Reports None Skin Medical History: Reports None Psychiatric Medical History: Reports: None Traumatic Medical History: Reports: None Infectious Medical History: Reports: None Past Surgical History: Reports: Hx Cholecystectomy, Hx Orthopedic Surgery - right knee - Immunizations Immunizations up to date: Yes Hx Diphtheria, Pertussis, Tetanus Vaccination: Yes History of Influenza Vaccine for 06/2017 - 11/2017 Season: Unknown Review of Systems - Review of Systems Constitutional: No symptoms reported EENT: No symptoms reported Cardiovascular: Palpitations, Syncope, Dizziness, Lightheaded. denies: Chest pain, Dyspnea Respiratory: No symptoms reported Gastrointestinal: No symptoms reported Genitourinary: No symptoms reported Female Genitourinary: No symptoms reported Musculoskeletal: No symptoms reported Skin: No symptoms reported Hematologic/Lymphatic: No symptoms reported Neurological/Psychological: No symptoms reported. denies: Confusion, Seizure, Numbness -: Yes All other systems reviewed and negative Physical Exam - Vital signs Vitals: Temp Resp Pulse Ox 98.6 F 16 98 08/11/18 20:48 08/11/18 20:48 08/11/18 20:48 - General General appearance: Appears well In distress: None - HEENT Head: Normocephalic, Atraumatic Eyes: Normal Pupils: PERRL - Respiratory Respiratory status: No respiratory distress Chest status: Nontender Breath sounds: Normal Chest palpation: Normal - Cardiovascular Rhythm: Regular Heart sounds: Normal auscultation Murmur: No - Abdominal Inspection: Normal Distension: No distension Bowel sounds: Normal Tenderness: Nontender Organomegaly: No organomegaly Notes: Gravid abdomen - Rectal Tenderness: No - Deferred - Genitourinary Notes: Deferred - Back Back: Normal, Nontender - Extremities General upper extremity: Normal inspection, Nontender, Normal color, Normal ROM , Normal temperature General lower extremity: Normal inspection, Nontender, Normal color, Normal ROM , Normal temperature, Normal weight bearing. No: Jenae's sign - Neurological Neuro grossly intact: Yes Cognition: Normal Orientation: AAOx4 [place] Coma Scale Eye Opening: Spontaneous [place] Coma Scale Verbal: Oriented [place] Coma Scale Motor: Obeys Commands [place] Coma Scale Total: 15 Speech: Normal Motor strength normal: LUE, RUE, LLE, RLE Sensory: Normal - Psychological Associated symptoms: Normal affect, Normal mood - Skin Skin Temperature: Warm Skin Moisture: Dry Skin Color: Normal Course - Re-evaluation Re-evalutation: 08/12/18 03:08 Blood work, including urinalysis and drug screen, are normal. Suspect etiology more consistent with paroxysmal heart dysrhythmias for which the patient already has follow-up scheduled. She will be discharged home, she understands and is in agreement with the plan. - Vital Signs Vital signs: Temp Pulse Resp BP Pulse Ox 98.6 F 75 18 92/63 L 98 08/11/18 20:48 08/11/18 23:01 08/12/18 02:05 08/12/18 02:05 08/12/18 02:05 - Laboratory Result Diagrams: 08/11/18 22:55 08/11/18 22:55 Laboratory results interpreted by me: 08/11/18 08/11/18 08/12/18 22:55 22:55 01:47 WBC 10.6 H Hct 34.7 L AST 13 L Creatine Kinase 21 L Total Protein 5.7 L Albumin 3.1 L Beta HCG, Quant 7578.10 H Ur Leukocyte Esterase TRACE H - Diagnostic Test Radiology reviewed: Reports reviewed - EKG Interpretation by Me EKG shows normal: Sinus rhythm Rate: Normal Rhythm: NSR [place]/QRS: No: LBBB Heart block present: No: 1st Degree, [place] 1, [place] 2, CHB (3rd degree block) When compared to previous EKG there are: No significant change, Previous EKG unavailable Discharge - Discharge Clinical Impression: Syncope Condition: Good Disposition: HOME, SELF-CARE Instructions: Syncopal Episode ([facility]) Additional Instructions: Please follow-up with your physicians as scheduled to have further cardiac evaluation as a possible cause of your fainting. Return to the emergency department immediately if you experience recurrent or worsening symptoms. Print Language: Kosovan
[2018-08-11 23:04] LABS: ABSOLUTE BASOPHILS # (AUTO) 0.1 10^3/uL (0.0-0.2); ABSOLUTE EOSINOPHILS # (AUTO) 0.1 10^3/uL (0.0-0.6); ABSOLUTE LYMPHOCYTES (AUTO) 2.7 10^3/uL (0.5-4.7); ABSOLUTE MONOCYTES (AUTO) 0.5 10^3/uL (0.1-1.4); ABSOLUTE NEUT (AUTO) 7.2 10^3/uL (1.7-8.2); BASOPHILS % (AUTO) 0.6 % (0-2); EOSINOPHILS % (AUTO) 0.9 % (0-6); HEMATOCRIT 34.7 % (36.0-47.0); HEMOGLOBIN 12.3 g/dL (12.0-15.5); LYMPHOCYTES % (AUTO) 25.6 % (13-45); MEAN CORPUSCULAR HEMOGLOBIN 32.3 pg (27.0-33.4); MEAN CORPUSCULAR HGB CONC 35.4 g/dL (32.0-36.0); MEAN CORPUSCULAR VOLUME 91 fl (80-97); PLATELET COUNT 229 10^3/uL (150-450); RED BLOOD COUNT 3.81 10^6/uL (3.72-5.28); RED CELL DISTRIBUTION WIDTH 13.8 % (11.5-14.0); SEGMENTED NEUTROPHILS % (AUTO) 67.9 % (42-78); TOTAL CELLS COUNTED % (AUTO) 100 %; WHITE BLOOD COUNT 10.6 10^3/uL (4.0-10.5)
[2018-08-11 23:19] LABS: ALANINE AMINOTRANSFERASE 17 U/L (9-52); ALBUMIN 3.1 g/dL (3.5-5.0); ALKALINE PHOSPHATASE 60 U/L (38-126); ANION GAP 10 (5-19); ASPARTATE AMINO TRANSFERASE 13 U/L (14-36); BILIRUBIN,TOTAL 0.3 mg/dL (0.2-1.3); BLOOD UREA NITROGEN 9 mg/dL (7-20); CALCIUM 8.5 mg/dL (8.4-10.2); CARBON DIOXIDE 23 mmol/L (22-30); CHLORIDE 106 mmol/L (98-107); CREATINE KINASE 21 U/L (30-135); GLUCOSE 86 mg/dL (75-110); POTASSIUM 4.2 mmol/L (3.6-5.0); SODIUM 138.6 mmol/L (137-145); TOTAL PROTEIN 5.7 g/dL (6.3-8.2)
[2018-08-11 23:33] LABS: ALCOHOL < 10 mg/dL (NONE DETECTED); CREATINE KINASE MB < 0.22 ng/mL (<4.55); TROPONIN I < 0.012 ng/mL
[2018-08-12 02:05] LABS: APPEARANCE,URINE SLIGHTLY-CLOUDY; BILIRUBIN,URINE NEGATIVE (NEGATIVE); COLOR,URINE YELLOW; GLUCOSE, URINE NEGATIVE (NEGATIVE); KETONES,URINE NEGATIVE (NEGATIVE); LEUKOCYTE ESTERASE,URINE TRACE (NEGATIVE); NITRITE,URINE NEGATIVE (NEGATIVE); PROTEIN,URINE NEGATIVE (NEGATIVE); URINE SPECIFIC GRAVITY 1.023; UROBILINOGEN,URINE NEGATIVE mg/dL (<2.0)
[2018-08-12 02:27] LABS: URINE AMPHETAMINES SCREEN NEGATIVE; URINE BARBITURATES SCREEN NEGATIVE; URINE BENZODIAZEPINES SCREEN NEGATIVE; URINE COCAINE SCREEN NEGATIVE; URINE MARIJUANA (THC) SCREEN NEGATIVE; URINE METHADONE SCREEN NEGATIVE; URINE PHENCYCLIDINE SCREEN NEGATIVE
[2018-08-12 03:40] VITALS: BP 99/69
--- NOTE | 2018-08-12 11:23 | EKG REPORT ---
SEVERITY:- NORMAL ECG - SINUS RHYTHM : Confirmed by: Jose Alfredo Payan 12-Aug-2018 11:22:18
== END 2018-08-12 03:25 | disposition home or self-care (01) ==
LOC: ER 20:30
DX: O26.892 Other specified pregnancy related conditions, second trimester (principal); R55 Syncope and collapse; R42 Dizziness and giddiness; R00.2 Palpitations; O99.332 Smoking (tobacco) complicating pregnancy, second trimester; Z3A.23 23 weeks gestation of pregnancy
CPT/HCPCS: 36415; 80053; 80307; 81001; 82550; 82553; 84484; 84702; 85025; 93005; 93010; 99284

== ENCOUNTER 2018-09-25 16:52 | Outpatient (CLI) | payer OTHER ==
[2018-09-25 17:39] LABS: BACTERIA (WET MOUNT) 4+ BACTERIA SEEN; EPITHELIALS (WET MOUNT) 4+ EPITHELIALS SEEN; WBCS (WET MOUNT) 1+ WBCS SEEN; YEAST (WET MOUNT) NO YEAST SEEN
[2018-09-25 17:40] LABS: T.VAGINALIS (WET MOUNT) TRICHOMONAS SEEN
[2018-09-25 17:54] LABS: AMORPHOUS SEDIMENT,URINE TRACE /HPF; APPEARANCE,URINE CLOUDY; BILIRUBIN,URINE NEGATIVE (NEGATIVE); COLOR,URINE YELLOW; GLUCOSE, URINE NEGATIVE (NEGATIVE); KETONES,URINE NEGATIVE (NEGATIVE); LEUKOCYTE ESTERASE,URINE TRACE (NEGATIVE); NITRITE,URINE NEGATIVE (NEGATIVE); PROTEIN,URINE NEGATIVE (NEGATIVE); URINE SPECIFIC GRAVITY 1.017; UROBILINOGEN,URINE NEGATIVE mg/dL (<2.0)
[2018-09-25] MEDS ORDERED: METRONIDAZOLE 500 MG TABLET PO ONE (18:10)
[2018-09-25 18:12] LABS: URINE AMPHETAMINES SCREEN NEGATIVE; URINE BARBITURATES SCREEN NEGATIVE; URINE BENZODIAZEPINES SCREEN NEGATIVE; URINE COCAINE SCREEN NEGATIVE; URINE MARIJUANA (THC) SCREEN NEGATIVE; URINE METHADONE SCREEN NEGATIVE; URINE PHENCYCLIDINE SCREEN NEGATIVE
[2018-09-25] MEDS ORDERED: METRONIDAZOLE 500 MG TABLET ONE (18:14)
[2018-09-25 21:41] LABS: CHLAM PCR NOT DETECTED (NOT DETECT); GON PCR NOT DETECTED (NOT DETECT)
== END 2018-09-25 18:39 | disposition home or self-care (01) ==
LOC: LC 16:52
PROVIDERS: ATTEND Obstetrics & Gynecology
PROC: 4A1HXCZ Monitoring of Products of Conception, Cardiac Rate, External Approach (ICD-10-PCS; principal; 2018-09-25)
DX: O98.313 Other infections with a predominantly sexual mode of transmission complicating pregnancy, third trimester (principal); A59.9 Trichomoniasis, unspecified; Z3A.29 29 weeks gestation of pregnancy
CPT/HCPCS: 80307; 81001; 84112; 87210; 87491; 87591